=== PATIENT | male | born 1990 | race Caucasian/White ===

== ENCOUNTER 2017-09-24 23:41 | Emergency (ER) | payer SELFPAY ==
[~2017-09-24] VITALS: Ht 165.1 cm; Wt 70.0 kg
[2017-09-24 23:56] VITALS: BP 119/74
== END 2017-09-25 01:31 | disposition left against medical advice (07) ==
LOC: ER 09-25 00:42
DX: R00.2 Palpitations (principal); Z53.21 Procedure and treatment not carried out due to patient leaving prior to being seen by health care provider